=== PATIENT | male | born 1970 | race Hispanic/Latino ===

== ENCOUNTER 2021-02-17 15:19 | Emergency (ER) | payer SELFPAY ==
[~2021-02-17 15:19] MED LIST: Iopamidol-370 76% 500 ML 1 ML ONE
[2021-02-17 17:58] LABS: #Basophils 0.1 thou/uL (0.0-0.2); #Eosinphils 0.2 thou/uL (0.0-0.7); #Lymphocytes 3.2 thou/uL (1.20-3.40); #Monocytes 0.6 thou/uL (0.11-0.59); #Neutrophils 3.8 thou/uL (1.40-6.50); %Basophils 0.8 % (0.0-1.0); %Eosinophils 2.3 % (0.0-10.0); %Lymphocytes 40.4 % (21.0-51.0); %Monocytes 7.9 % (0.0-10.0); %Neutrophils 48.6 % (42.0-75.0); Hemoglobin 14.9 g/dL (14.0-18.0); Mean Corpuscular HGB CONC 32.6 g/dL (32.0-36.0); Mean Corpuscular Hemoglobin 28.5 pg (27.0-31.0); Mean Corpuscular Volume 87.7 fL (78.0-98.0); Mean Platelet Volume 7.4 fL (7.4-10.4); Platelet Count 290 thou/uL (130-400); RBC Distribution Width 12.3 % (11.5-14.5); White Blood Cell (WBC) Count 7.9 thou/uL (4.8-10.8)
[2021-02-17 18:17] LABS: Anion Gap 11 mmol/L (10-20); BUN (Urea Nitrogen) 12 mg/dL (8.4-25.7); Calc. Creatinine Clearance 0 mL/min (70-130); Carbon Dioxide 26 mmol/L (22-29); Chloride 103 mmol/L (98-107); Potassium 4.4 mmol/L (3.5-5.1); Sodium 136 mmol/L (136-145)
[2021-02-17 18:18] LABS: ALT (SGPT) 11 U/L (8-55); AST (SGOT) 16 U/L (5-34); Albumin 4.4 g/dL (3.5-5.0); Alkaline Phosphatase 50 U/L (40-110); Bilirubin, Total 1.1 mg/dL (0.2-1.2); Calcium 9.7 mg/dL (7.8-10.44); Globulin 3.4 g/dL (2.4-3.5); Glucose 89 mg/dL (70-105); Lipase 22 U/L (8-78); Protein, Total 7.8 g/dL (6.0-8.3)
[2021-02-17] MEDS ORDERED: Lidocaine Viscous Sol 2% 15 ml UD Cup ONE (20:12)
[2021-02-17] MEDS ORDERED: Mag-Al 1200 mg/1200 mg/30 ML UDCUP ONE (20:12)
[2021-02-17 20:40] LABS: Bilirubin Negative (Negative); Blood, Urine Negative (Negative); Clarity Clear (Clear); Glucose, Urine (Dipstick) Normal (Negative); Ketone, Urine Negative (Negative); Leukocyte Negative Leu/uL (Negative); Nitrite Negative (Negative); Protein, Urine (Dipstick) Negative (Neg-Trace); Urobilinogen Normal mg/dL (Less than 2); pH, Urine 6.5 (5.0-9.0)
[2021-02-17 20:41] LABS: Specific Gravity, Urine Greater than 1.060 (1.002-1.036)
== END 2021-02-17 21:02 | disposition home or self-care (01) ==
LOC: ERS 15:19
DX: K59.00 Constipation, unspecified (principal); R19.7 Diarrhea, unspecified; R11.0 Nausea; Z87.891 Personal history of nicotine dependence
CPT/HCPCS: 36415; 74177; 80053; 81003; 83690; 85025; Q9967